=== PATIENT | male | born 1935 | race Caucasian/White ===

== ENCOUNTER 2017-12-07 13:50 | Inpatient (IN) | payer MEDICARE, OTHER ==
[2017-12-07 15:41] LABS: CHLORIDE,CL 104 mmol/L (101-111); SODIUM,NA 138 mmol/L (135-145)
[2017-12-07] MEDS ORDERED: Docusate Sodium 100 MG Cap PO PRN (16:42)
[2017-12-07] MEDS ORDERED: Acetaminophen 325 MG Tab PO PRN (16:42)
[2017-12-07] MEDS ORDERED: Ondansetron 4 MG Tab.DIS PO PRN (16:42)
[2017-12-07] MEDS: Sodium Chloride 0.9% 1,000 ML IV SCH (18:00)
--- NOTE | 2017-12-07 19:09 | EDM.PDOC ---
Scribed by Gracie Dexter 12/07/17 [id number] for Brittani Oleary NP ED HPI GENERAL MEDICAL PROBLEM - General Chief Complaint: Neuro Symptoms/Deficits Stated Complaint: HIGH BLOOD PRESSURE, CONFUSSED Time Seen by Provider: 12/07/17 14:46 Source of Information: Reports: Patient, Family, RN, RN Notes Reviewed History Limitations: Reports: Altered Mental Status - History of Present Illness INITIAL COMMENTS - FREE TEXT/NARRATIVE: Patient presents to ER with . states he is having increased confusion. Patient struggles to find words. states patient does not take his meds as prescribed. States he has been somewhat confused for 1-1/2 years. He is sleeping more and cannot follow command. He is incontinent. HE gets upset, irritable and angry. He was round this A.M. on the floor at 0300. Duration: Getting Worse Location: Reports: Generalized Severity: Severe Improves with: Reports: None Worsens with: Reports: None Associated Symptoms: Reports: No Other Symptoms - Related Data Allergies Allergy/AdvReac Type Severity Reaction Status Date / Time ampicillin Allergy Rash Verified 12/07/17 14:19 levofloxacin [From Levaquin] Allergy Cannot Verified 12/07/17 14:19 Remember sulfamethoxazole Allergy Cannot Verified 12/07/17 14:19 [From Bactrim] Remember trimethoprim [From Bactrim] Allergy Cannot Verified 12/07/17 14:19 Remember hydromorphone [From Dilaudid] AdvReac Bradycardia Verified 12/07/17 14:19 Home Meds: Home Meds Allopurinol [Zyloprim] 150 mg PO DAILY 11/06/14 [History] Metoprolol Succinate [Toprol XL 50mg] 150 mg PO DAILY 11/06/14 [History] Rosuvastatin [Crestor] 5 mg PO .QOD 11/06/14 [History] Sennosides [Senna] 2 cap PO BEDTIME 11/06/14 [History] Aspirin [Halfprin] 81 mg PO DAILY 09/03/16 [History] Tolterodine Tartrate [Tolterodine Tartrate ER] 4 mg PO DAILY 12/07/17 [History] amLODIPine [Norvasc] 5 mg PO DAILY 12/07/17 [History] Past Medical History HEENT History: Reports: Cataract, Hard of Hearing, Impaired Vision Cardiovascular History: Reports: Aneurysm, High Cholesterol, Hypertension, Other (See Below) (circulation issues) Respiratory History: Reports: None Gastrointestinal History: Reports: Chronic Constipation, Diverticulosis, GI Bleed (. Rectal bleeding.), Hemorrhoids, Other (See Below) Other Gastrointestinal History: HX OF SBO Genitourinary History: Reports: Urinary Incontinence Other Genitourinary History: HX OF BLADDER CA Musculoskeletal History: Reports: Gout, Osteoarthritis Other Musculoskeletal History: polymylagia rheumatica Neurological History: Reports: Cerebral Aneurysms, Other (See Below) (aneurysm) Psychiatric History: Reports: Alzheimers Disease Endocrine/Metabolic History: Reports: None Hematologic History: Reports: None Immunologic History: Reports: None Oncologic (Cancer) History: Reports: None Dermatologic History: Reports: None, Other (See Below) Other Dermatologic History: 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 - Infectious Disease History Infectious Disease History: Reports: Chicken Pox, Measles, Mumps Other Infectious Disease History: INTERVIEWING , SHE IS UNAWARE - Past Surgical History Head Surgeries/Procedures: Reports: None HEENT Surgical History: Reports: Cataract Surgery Respiratory Surgical History: Reports: None Endocrine Surgical History: Reports: None Oncologic Surgical History: Reports: None Social & Family History - Family History Family Medical History: Noncontributory - Tobacco Use Smoking Status *Q: Former Smoker Years of Tobacco use: 3 Packs/Tins Daily: 0.5 Used Tobacco, but Quit: Yes Month/Year Tobacco Last Used: september Second Hand Smoke Exposure: No - Caffeine Use Caffeine Use: Reports: Coffee, Soda Other Caffeine Use: AVERAGE OF 2 CUPS DAILY - Alcohol Use Days Per Week of Alcohol Use: 3 Number of Drinks Per Day: 1 Total Drinks Per Week: 3 - Recreational Drug Use Recreational Drug Use: No Drug Use in Last 12 Months: No - Living Situation & Occupation Occupation: Retired ED ROS GENERAL - Review of Systems Review Of Systems: ROS reveals no pertinent complaints other than HPI. ED EXAM, NEURO - Physical Exam Exam: See Below Exam Limited By: No Limitations General Appearance: Other (dissheveled, smells of urine.) Eye Exam: Bilateral Eye: Normal Inspection Ears: Normal External Exam, Normal Canal, Hearing Grossly Normal, Normal TMs Nose: Normal Inspection Throat/Mouth: Normal Inspection, Normal Lips, Normal Teeth, Normal Gums, Normal Oropharynx, Normal Voice, No Airway Compromise Head Exam: Atraumatic, Normocephalic Neck: Normal Inspection, Supple, Non-Tender, Full Range of Motion Respiratory/Chest: Decreased Breath Sounds Cardiovascular: Normal Peripheral Pulses, Regular Rate, Rhythm, No Edema, No Gallop, No JVD, No Murmur, No Rub GI/Abdominal: Normal Bowel Sounds, Soft, Non-Tender, No Organomegaly, No Distention, No Abnormal Bruit, No Mass (Male) Exam: Other (incontinent) Rectal (Males) Exam: Deferred Back Exam: Normal Inspection, Full Range of Motion, NT Extremities: Other (decreased range of motion.) Psychiatric: Other (confused) Skin Exam: Warm, Dry, Intact, Normal Color, No Rash Course - Vital Signs Last Recorded V/S: Last Vital Signs Temp 97.6 F 12/07/17 14:00 Pulse 92 12/07/17 14:39 Resp 18 12/07/17 14:00 BP 150/73 H 12/07/17 14:39 Pulse Ox 97 12/07/17 14:39 - Orders/Labs/Meds Labs: Laboratory Tests 12/07/17 12/07/17 12/07/17 Range/Units 15:13 15:13 16:09 WBC 8.1 (5.0-10.0) 10^3/uL RBC 4.63 (4.6-6.2) 10^6/uL Hgb 14.6 (14.0-18.0) g/dL Hct 43.0 (40.0-54.0) % MCV 92.9 (80-100) fL MCH 31.5 (27.0-34.0) pg MCHC 34.0 (33.0-35.0) g/dL Plt Count 214 (150-450) 10^3/uL Neut % (Auto) 67.7 (42.2-75.2) % Lymph % (Auto) 19.0 L (20.5-50.1) % Dixon % (Auto) 12.7 H (2-8) % Eos % (Auto) 0.4 L (1.0-3.0) % Baso % (Auto) 0.2 (0.0-1.0) % Sodium 138 (135-145) mmol/L Potassium 3.9 (3.6-5.0) mmol/L Chloride 104 (101-111) mmol/L Carbon Dioxide 26.0 (21.0-31.0) mmol/L Anion Gap 11.9 BUN 14 (7-18) mg/dL Creatinine 1.0 (0.6-1.3) mg/dL Est Cr Clr Drug Dosing 56.95 mL/min Estimated GFR (MDRD) > 60 BUN/Creatinine Ratio 14.00 Glucose 95 (74-105) mg/dL Calcium 9.1 (8.4-10.2) mg/dl Total Bilirubin 0.6 (0.2-1.0) mg/dL AST 19 (10-42) IU/L ALT 13 (10-60) IU/L Alkaline Phosphatase 68 (42-121) IU/L Total Protein 7.7 (6.7-8.2) g/dl Albumin 4.1 (3.2-5.5) g/dl Globulin 3.6 Albumin/Globulin Ratio 1.14 Urine Color Yellow (YELLOW) Urine Appearance Clear (CLEAR) Urine pH 5.5 (5.0-9.0) Ur Specific Wilsey >= 1.030 (1.005-1.030) Urine Protein 30 H (NEGATIVE) Urine Glucose (UA) Negative (NEGATIVE) Urine Ketones Negative (NEGATIVE) Urine Occult Blood Negative (NEGATIVE) Urine Nitrite Negative (NEGATIVE) Urine Bilirubin Negative (NEGATIVE) Urine Urobilinogen 0.2 (0.2-1.0) mg/dL Ur Leukocyte Esterase Negative (NEGATIVE) Urine RBC 0-5 /HPF Urine WBC 0-5 (0-5/HPF) /HPF Ur Epithelial Cells Rare /HPF Urine Bacteria Rare (0-FEW/HPF) /HPF - Radiology Interpretation Free Text/Narrative:: CT head: Mild white matter hypoattenuation 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 No intracranial mass effect, hemorrhage or acute large territory infarct. 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 See rad report. Departure - Departure Time of Disposition: 16:41 Disposition: Refer to Observation Condition: Poor Clinical Impression: Muscle weakness, Confusion, Unsteady gait - Discharge Information Forms: ED Department Discharge I have read and agree with the documentation that has been completed regarding this visit. By signing this record, I attest that the documentation was completed in my physical presence and is an accurate record of the encounter.
[2017-12-07] MEDS: Rosuvastatin 10 MG Tab PO SCH (20:37)
--- NOTE | 2017-12-07 20:46 | PCM.HP ---
H&P History of Present Illness - General Date of Service: 12/07/17 Source of Information: Family History Limitations: Reports: Altered Mental Status - History of Present Illness Initial Comments - Free Text/Narative: The patient is an 81 year old mom with medical history of hypertension and dyslipidemia. The patient has cognitive difficulty with some dementia. This has been worsening over the past few months. In the past 3 days it appears to have markedly worsened. Patient is argumentative and sometimes aggressive to the . Early this morning he was found on the floor by his . He was very weak and had trouble getting up and ambulating Duration of Symptoms: Reports: Chronic Location: Reports: Generalized Severity: Moderate Context: Reports: Other Associated Symptoms: Reports: Confusion, Malaise - Related Data Allergies/Adverse Reactions: Allergies Allergy/AdvReac Type Severity Reaction Status Date / Time ampicillin Allergy Rash Verified 12/07/17 14:19 levofloxacin [From Levaquin] Allergy Rash Verified 12/07/17 17:57 sulfamethoxazole Allergy Rash Verified 12/07/17 17:57 [From Bactrim] trimethoprim [From Bactrim] Allergy Rash Verified 12/07/17 17:57 hydromorphone [From Dilaudid] AdvReac Bradycardia Verified 12/07/17 14:19 Home Medications: Home Meds Allopurinol [Zyloprim] 150 mg PO DAILY 11/06/14 [History] Metoprolol Succinate [Toprol XL 50mg] 150 mg PO DAILY 11/06/14 [History] Rosuvastatin [Crestor] 5 mg PO .QOD 11/06/14 [History] Sennosides [Senna] 2 cap PO BEDTIME 11/06/14 [History] Aspirin [Halfprin] 81 mg PO DAILY 09/03/16 [History] Tolterodine Tartrate [Tolterodine Tartrate ER] 4 mg PO DAILY PRN 12/07/17 [ History] amLODIPine [Norvasc] 5 mg PO DAILY 12/07/17 [History] Past Medical History HEENT History: Reports: Cataract, Hard of Hearing, Impaired Vision Cardiovascular History: Reports: Aneurysm, High Cholesterol, Hypertension, Other (See Below) (circulation issues) Respiratory History: Reports: None Gastrointestinal History: Reports: Chronic Constipation, Diverticulosis, GI Bleed (. Rectal bleeding.), Hemorrhoids, Other (See Below) Other Gastrointestinal History: HX OF SBO Genitourinary History: Reports: Urinary Incontinence Other Genitourinary History: HX OF BLADDER CA Musculoskeletal History: Reports: Gout, Osteoarthritis Other Musculoskeletal History: polymylagia rheumatica Neurological History: Reports: Cerebral Aneurysms, Other (See Below) (aneurysm) Psychiatric History: Reports: Alzheimers Disease Endocrine/Metabolic History: Reports: None Hematologic History: Reports: None Immunologic History: Reports: None Oncologic (Cancer) History: Reports: None Dermatologic History: Reports: None, Other (See Below) Other Dermatologic History: 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 - Infectious Disease History Infectious Disease History: Reports: Chicken Pox, Measles, Mumps Other Infectious Disease History: INTERVIEWING , SHE IS UNAWARE - Past Surgical History Head Surgeries/Procedures: Reports: None HEENT Surgical History: Reports: Cataract Surgery Respiratory Surgical History: Reports: None Endocrine Surgical History: Reports: None Oncologic Surgical History: Reports: None Social & Family History - Family History Family Medical History: Noncontributory - Tobacco Use Smoking Status *Q: Former Smoker Years of Tobacco use: 3 Packs/Tins Daily: 0.5 Used Tobacco, but Quit: Yes Month/Year Tobacco Last Used: september Second Hand Smoke Exposure: No - Caffeine Use Caffeine Use: Reports: Coffee, Soda Other Caffeine Use: AVERAGE OF 2 CUPS DAILY - Alcohol Use Days Per Week of Alcohol Use: 3 Number of Drinks Per Day: 1 Total Drinks Per Week: 3 - Recreational Drug Use Recreational Drug Use: No Drug Use in Last 12 Months: No - Living Situation & Occupation Occupation: Retired H&P Review of Systems - Review of Systems: Review Of Systems: See Below General: Reports: Weakness, Fatigue Pulmonary: Reports: No Symptoms Cardiovascular: Reports: No Symptoms Gastrointestinal: Reports: No Symptoms Musculoskeletal: Reports: No Symptoms, Other (Generalized weakness) Psychiatric: Reports: Confusion Exam - Exam Exam: See Below - Vital Signs Vital Signs: Last Vital Signs Temp 36.8 C 12/07/17 16:42 Pulse 69 12/07/17 16:42 Resp 18 12/07/17 16:42 BP 151/66 H 12/07/17 16:42 Pulse Ox 98 12/07/17 16:42 Weight: 88.995 kg - Exam General: Alert, Other Neck: Supple Lungs: Clear to Auscultation Cardiovascular: Regular Rate, Regular Rhythm GI/Abdominal Exam: Normal Bowel Sounds, Soft, Non-Tender (Male) Exam: No Hernia, Normal Inspection, Normal Prostate, Circumcised Back Exam: Normal Inspection, Full Range of Motion, NT Extremities: Normal Inspection, Normal Range of Motion, Non-Tender, No Pedal Edema, Normal Capillary Refill Neuro Extensive - Mental Status: Disorientation to Time Neuro Extensive - Motor, Sensory, Reflexes: Dysarthria Psychiatric: Anxious - Patient Data Result Diagrams: 12/07/17 15:13 12/07/17 15:13 *Q Meaningful Use (ADM) - VTE *Q VTE Criteria *Q: - Stroke *Q Stroke Criteria *Q: - AMI *Q AMI Criteria *Q: Problem List Initiated/Reviewed/Updated: Yes Orders Last 24hrs: Active Orders 24 hr Category Date Time Status Brain w wo Cont [MR] Routine Exams 12/08/17 08:38 Ordered Enoxaparin [Lovenox] Med 12/08/17 09:00 Ordered 40 mg SUBCUT DAILY Medication Orders Acetaminophen (Tylenol) 650 mg PO Q4H PRN PRN Reason: Pain (Mild 1-3)/fever Allopurinol (Zyloprim) 150 mg PO DAILY [facility] Amlodipine Besylate (Norvasc) 5 mg PO DAILY [facility] Docusate Sodium (Colace) 100 mg PO BID PRN PRN Reason: Constipation Enoxaparin Sodium (Lovenox) 40 mg SUBCUT DAILY [facility] Sodium Chloride (Normal Saline) 1,000 mls @ 100 mls/hr IV ASDIRECTED [facility] Last Admin: 12/07/17 18:00 Dose: 100 mls/hr Metoprolol Succinate (Toprol Xl) 150 mg PO DAILY [facility] Non-Formulary Medication (Sennosides [Senna]) 2 cap PO BEDTIME [facility] Ondansetron HCl (Zofran Odt) 4 mg PO Q6H PRN PRN Reason: nausea, able to take PO Rosuvastatin Calcium (Crestor) 5 mg PO Q2D [facility] Last Admin: 12/07/17 20:37 Dose: 5 mg Tolterodine Tartrate (Detrol La 24 Hr) 4 mg PO DAILY [facility] Assessment/Plan Comment:: #. Probable acute on chronic encephalopathy Patient has had some cognitive issues in the past few months. This seemed to have escalated in the past few weeks. I suspect that this is due to progression of underlying dementia. I like to rule out an acute stroke #. Probable fall The patient was found on the floor by his this morning #. Hypertension Blood pressure is intermittently elevated #. Dyslipidemia Patient has been on statin #. Generalized weakness Patient is weak and unable to ambulate. This represents a decline from his normal status. Does appear to have some expressive difficulty. Plan: Admit patient to medical floor Consult physical therapy Consult occupational therapy Consult social worker delinquency prevention Patient is weak and I'm hoping to improve his strength with physical and occupational therapy treatment. Obtain MRI to rule out an acute stroke
[2017-12-08] MEDS: Sodium Chloride 0.9% 1,000 ML IV SCH (03:43)
[2017-12-08] MEDS: Metoprolol Succinate 50 MG Tab.ER PO SCH (08:44)
[2017-12-08] MEDS: Allopurinol 300 MG Tab PO SCH (08:45)
[2017-12-08] MEDS: Tolterodine 2 MG Cap.ER PO SCH (08:46)
[2017-12-08] MEDS: Enoxaparin 40 MG/0.4 ML Syringe SUBCUT SCH (08:47)
[2017-12-08] MEDS ORDERED: amLODIPine 5 MG Tab PO SCH (09:00)
--- NOTE | 2017-12-08 09:58 | PCM.PN ---
- General Info Date of Service: 12/08/17 Subjective Update: The patient is very confused. Not able to provide any significant history He is tremulous and shaking. No documented fever Has been constipated. - Review of Systems General: Reports: Weakness, Malaise Pulmonary: Reports: No Symptoms Cardiovascular: Reports: No Symptoms Gastrointestinal: Reports: Constipation - Patient Data Vitals - Most Recent: Last Vital Signs Temp 36.8 C 12/08/17 07:44 Pulse 64 12/08/17 08:44 Resp 20 12/08/17 07:44 BP 173/68 H 12/08/17 08:46 Pulse Ox 97 12/08/17 07:44 Weight - Most Recent: 88.995 kg I&O - Last 24 Hours: Intake & Output 12/07/17 12/08/17 12/08/17 22:59 06:59 14:59 Intake Total 540 980 125 Output Total 100 200 Balance 440 780 125 Med Orders - Current: Current Medications Acetaminophen (Tylenol) 650 mg PO Q4H PRN PRN Reason: Pain (Mild 1-3)/fever Allopurinol (Zyloprim) 150 mg PO DAILY [facility] Last Admin: 12/08/17 08:45 Dose: 150 mg Amlodipine Besylate (Norvasc) 10 mg PO DAILY [facility] Docusate Sodium (Colace) 100 mg PO BID PRN PRN Reason: Constipation Enoxaparin Sodium (Lovenox) 40 mg SUBCUT DAILY [facility] Last Admin: 12/08/17 08:47 Dose: 40 mg Sodium Chloride (Normal Saline) 1,000 mls @ 100 mls/hr IV ASDIRECTED [facility] Last Admin: 12/08/17 03:43 Dose: 100 mls/hr Metoprolol Succinate (Toprol Xl) 150 mg PO DAILY [facility] Last Admin: 12/08/17 08:44 Dose: 150 mg Non-Formulary Medication (Sennosides [Senna]) 2 cap PO BEDTIME [facility] Ondansetron HCl (Zofran Odt) 4 mg PO Q6H PRN PRN Reason: nausea, able to take PO Rosuvastatin Calcium (Crestor) 5 mg PO Q2D [facility] Last Admin: 12/07/17 20:37 Dose: 5 mg Tolterodine Tartrate (Detrol La 24 Hr) 4 mg PO DAILY [facility] Last Admin: 12/08/17 08:46 Dose: 4 mg Discontinued Medications Amlodipine Besylate (Norvasc) 5 mg PO DAILY [facility] Last Admin: 12/08/17 08:46 Dose: Not Given - Exam General: Other (Weak and tremulous) Neck: Supple Lungs: Clear to Auscultation Cardiovascular: Regular Rate, Regular Rhythm GI/Abdominal Exam: Soft, Non-Tender Neurological: Other (Confused and forgetful) - Problem List Review Problem List Initiated/Reviewed/Updated: Yes - My Orders Last 24 Hours: My Active Orders 12/08/17 08:38 Brain w wo Cont [MR] Routine 12/08/17 09:00 MRA Head Without Contrast [Ang Head wo Cont] [MR] Routine Enoxaparin [Lovenox] 40 mg SUBCUT DAILY amLODIPine [Norvasc] 10 mg PO DAILY - Plan Plan:: #. Probable acute on chronic encephalopathy Patient has had some cognitive issues in the past few months. This seemed to have worsened in the past few weeks. I suspect that this is due to progression of underlying dementia. CT scan of the head did not suggest stroke #. Probable fall The patient was found on the floor by his this morning #. Hypertension Blood pressure is intermittently elevated #. Dyslipidemia Patient has been on statin #. Generalized weakness Patient is weak and unable to ambulate. This represents a decline from his normal status. Does appear to have some expressive difficulty. Plan: I try to obtain MRI of the brain. The patient is tremulous and could not lay still. I do not think he had a stroke. I will go ahead and cancel planned MRI Increase amlodipine to 10 mg daily Consult physical therapy Consult occupational therapy Discontinue intravenous fluids
[2017-12-08] MEDS: amLODIPine 5 MG Tab PO SCH ×2 (10:05→10:48)
[2017-12-08] MEDS ORDERED: Bisacodyl 10 MG Supp RECTAL ONE (10:07)
[2017-12-08] MEDS: Acetaminophen Soln 160 MG/5 ML UD Cup PO PRN ×3 (11:39→22:04)
--- NOTE | 2017-12-08 11:56 | CR ---
CLINICAL HISTORY: 81-year-old male with wheezing and shortness of breath reported March 2013 to have " no new cardiopulmonary abnormality compared to 10 November 2009 films" ("subtle pleural changes sugge sting asbestosis" reported CT scan, November 2009). INTERPRETATION: Upright AP portable chest film today suggests some new widening of the superior media stinum and irregularity of the midline trachea since more optimal inspiratory comparison PA film 25 F ebruary 2009. Technique? Superior mediastinal mass? Normal cardiac silhouette and calcifications arch of the left-sided aorta. No alveolar edema or dependent pleural effusion. No new lung mass, focal lobar pneumonia or atelectasis/collapse. No pneumothorax. CONCLUSION: Possible superior mediastinal mass (see above). Recommend CT scan chest with contrast. Otherwise negative exam.
[2017-12-08] MEDS: Piperacillin/Tazobactam 3.375 GM in Sodium Chloride 0.9% 100 ML IV SCH ×2 (14:17→22:31)
[2017-12-09] MEDS: Tolterodine 2 MG Cap.ER PO SCH (10:54)
[2017-12-09] MEDS: Enoxaparin 40 MG/0.4 ML Syringe SUBCUT SCH (10:54)
[2017-12-09] MEDS: Metoprolol Succinate 50 MG Tab.ER PO SCH (10:54)
[2017-12-09] MEDS: Allopurinol 300 MG Tab PO SCH (10:54)
[2017-12-09] MEDS: amLODIPine 5 MG Tab PO SCH (10:55)
[2017-12-09] MEDS: Piperacillin/Tazobactam 3.375 GM in Sodium Chloride 0.9% 100 ML IV SCH ×3 (10:55→22:33)
--- NOTE | 2017-12-09 11:13 | PCM.PN ---
- General Info Date of Service: 12/09/17 Subjective Update: The patient is less confused today compared to yesterday Has not had fever since last night Actually able to comment acute better today No nausea no vomiting - Review of Systems General: Reports: Weakness Pulmonary: Reports: No Symptoms, Cough Genitourinary: Reports: No Symptoms - Patient Data Vitals - Most Recent: Last Vital Signs Temp 37.2 C 12/08/17 22:12 Pulse 59 L 12/08/17 22:12 Resp 20 12/08/17 22:12 BP 116/50 L 12/08/17 22:12 Pulse Ox 93 L 12/08/17 22:12 Weight - Most Recent: 88.995 kg I&O - Last 24 Hours: Intake & Output 12/08/17 12/09/17 12/09/17 22:59 06:59 14:59 Output Total 100 Balance -100 Lab Results Last 24 Hours: Laboratory Results - last 24 hr 12/08/17 12/08/17 12/08/17 Range/Units 11:26 11:26 14:45 WBC 11.1 H (5.0-10.0) 10^3/uL RBC 4.63 (4.6-6.2) 10^6/uL Hgb 14.6 (14.0-18.0) g/dL Hct 42.8 (40.0-54.0) % MCV 92.4 (80-100) fL MCH 31.5 (27.0-34.0) pg MCHC 34.1 (33.0-35.0) g/dL Plt Count 206 (150-450) 10^3/uL Neut % (Auto) 81.1 H (42.2-75.2) % Lymph % (Auto) 9.7 L (20.5-50.1) % [place] % (Auto) 8.8 H (2-8) % Eos % (Auto) 0.2 L (1.0-3.0) % Baso % (Auto) 0.2 (0.0-1.0) % Lactic Acid 1.1 (0.5-2.2) mmol/L Urine Color Yellow (YELLOW) Urine Appearance Slightly cloudy (CLEAR) Urine pH 7.0 (5.0-9.0) Ur Specific [place] 1.020 (1.005-1.030) Urine Protein 30 H (NEGATIVE) Urine Glucose (UA) Negative (NEGATIVE) Urine Ketones Negative (NEGATIVE) Urine Occult Blood Trace-intact H (NEGATIVE) Urine Nitrite Negative (NEGATIVE) Urine Bilirubin Negative (NEGATIVE) Urine Urobilinogen 0.2 (0.2-1.0) mg/dL Ur Leukocyte Esterase Negative (NEGATIVE) Urine RBC 0-5 /HPF Urine WBC 0-5 (0-5/HPF) /HPF Ur Epithelial Cells Occasional /HPF Amorphous Sediment Moderate (0/HPF) /HPF Urine Bacteria Few (0-FEW/HPF) /HPF Urine Mucus Many H /LPF Charles Results Last 24 Hours: Microbiology 12/08/17 14:45 Urine Culture - Preliminary Urine, Clean Catch Med Orders - Current: Current Medications Acetaminophen (Tylenol Solution) 650 mg PO Q4H PRN PRN Reason: Pain (Mild 1-3)/fever Last Admin: 12/08/17 22:04 Dose: 650 mg Allopurinol (Zyloprim) 150 mg PO DAILY [facility] Last Admin: 12/09/17 10:54 Dose: Not Given Amlodipine Besylate (Norvasc) 5 mg PO DAILY [facility] Last Admin: 12/09/17 10:55 Dose: Not Given Docusate Sodium (Colace) 100 mg PO BID PRN PRN Reason: Constipation Enoxaparin Sodium (Lovenox) 40 mg SUBCUT DAILY [facility] Last Admin: 12/09/17 10:54 Dose: Not Given Piperacillin Sod/Tazobactam (Sod 3.375 gm/ Sodium Chloride) 100 mls @ 200 mls/ hr IV Q8HR [facility] Last Admin: 12/09/17 10:55 Dose: Not Given Metoprolol Succinate (Toprol Xl) 150 mg PO DAILY [facility] Last Admin: 12/09/17 10:54 Dose: Not Given Non-Formulary Medication (Sennosides [Senna]) 2 cap PO BEDTIME [facility] Ondansetron HCl (Zofran Odt) 4 mg PO Q6H PRN PRN Reason: nausea, able to take PO Rosuvastatin Calcium (Crestor) 5 mg PO Q2D [facility] Last Admin: 12/07/17 20:37 Dose: 5 mg Tolterodine Tartrate (Detrol La 24 Hr) 4 mg PO DAILY [facility] Last Admin: 12/09/17 10:54 Dose: Not Given Discontinued Medications Acetaminophen (Tylenol) 650 mg PO Q4H PRN PRN Reason: Pain (Mild 1-3)/fever Amlodipine Besylate (Norvasc) 5 mg PO DAILY [facility] Last Admin: 12/08/17 08:46 Dose: Not Given Amlodipine Besylate (Norvasc) 10 mg PO DAILY [facility] Last Admin: 12/08/17 10:48 Dose: Not Given Bisacodyl (Dulcolax) 10 mg RECTAL ONETIME ONE Stop: 12/08/17 10:08 Last Admin: 12/08/17 12:29 Dose: 10 mg Sodium Chloride (Normal Saline) 1,000 mls @ 100 mls/hr IV ASDIRECTED [facility] Last Admin: 12/08/17 03:43 Dose: 100 mls/hr - Exam General: Alert, Other (Intermittently confused) HEENT: Pupils Equal, Pupils Reactive, EOMI, Mucous Membr. Moist/[place] Lungs: Clear to Auscultation, Normal Respiratory Effort Cardiovascular: Regular Rate, Regular Rhythm Extremities: Normal Inspection, Normal Range of Motion, Non-Tender, No Pedal Edema, Normal Capillary Refill Psy/Mental Status: Other (Intermittently confused) - Problem List Review Problem List Initiated/Reviewed/Updated: Yes - My Orders Last 24 Hours: My Active Orders 12/08/17 11:06 Patient Status [ADT] Routine 12/08/17 11:10 Blood Culture x2 Reflex Set [OM.PC] Stat 12/08/17 11:26 CULTURE BLOOD [BC] Stat 12/08/17 11:28 CULTURE BLOOD [BC] Stat 12/08/17 11:30 Acetaminophen [Tylenol Solution] 650 mg PO Q4H PRN 12/08/17 14:00 Piperacillin/Tazobactam [Zosyn] 3.375 gm Sodium Chloride 0.9% [Normal Saline] 100 ml IV Q8HR 12/08/17 14:45 CULTURE URINE [RM] Routine 12/09/17 09:00 amLODIPine [Norvasc] 5 mg PO DAILY 12/10/17 11:07 CBC W/O DIFF,HEMOGRAM [HEME] Routine CRP [C-REACTIVE PROTEIN] [CHEM] Routine - Plan Plan:: #. Acute febrile illness The patient started having fever with temperature up to 103 Source of the fever is not obvious at this point. No evidence of urinary tract infection. No evidence of chest infection Patient was started on intravenous Zosyn empirically. #. Probable acute on chronic encephalopathy Patient has had some cognitive issues in the past few months. This seemed to have worsened in the past few weeks. I suspect that this is due to progression of underlying dementia. CT scan of the head did not suggest stroke #. Probable fall The patient was found on the floor by his this morning #. Hypertension Blood pressure is intermittently elevated #. Dyslipidemia Patient has been on statin #. Generalized weakness Patient is weak and unable to ambulate. This represents a decline from his normal status. Plan: I tried to obtain MRI of the brain but the patient could not stay still I started the patient on intravenous Zosyn and will continue it for now Blood cultures and urine cultures obtained Discontinue intravenous fluid Continue physical and occupational therapy
[2017-12-09] MEDS: SENNOSIDES PO SCH (13:29)
[2017-12-09] MEDS: Oseltamivir 75 MG Cap PO SCH ×2 (14:22→22:32)
[2017-12-09] MEDS: Acetaminophen Soln 160 MG/5 ML UD Cup PO PRN ×2 (15:47→22:33)
[2017-12-09] MEDS ORDERED: Haloperidol Lactate 5 MG/ML SDV IVPUSH PRN (17:41)
[2017-12-09] MEDS: Haloperidol Lactate 5 MG/ML SDV IM PRN (17:49)
[2017-12-09] MEDS: Rosuvastatin 10 MG Tab PO SCH (22:46)
[2017-12-10] MEDS: Piperacillin/Tazobactam 3.375 GM in Sodium Chloride 0.9% 100 ML IV SCH ×3 (06:08→22:18)
[2017-12-10] MEDS: Acetaminophen Soln 160 MG/5 ML UD Cup PO PRN (08:42)
[2017-12-10] MEDS: Tolterodine 2 MG Cap.ER PO SCH (08:46)
[2017-12-10] MEDS: Oseltamivir 75 MG Cap PO SCH ×2 (08:46→20:28)
[2017-12-10] MEDS: Enoxaparin 40 MG/0.4 ML Syringe SUBCUT SCH (08:46)
[2017-12-10] MEDS: Allopurinol 300 MG Tab PO SCH (08:46)
[2017-12-10] MEDS: Metoprolol Succinate 50 MG Tab.ER PO SCH (08:48)
[2017-12-10] MEDS: amLODIPine 5 MG Tab PO SCH (08:49)
--- NOTE | 2017-12-10 11:07 | PCM.PN ---
- General Info Date of Service: 12/10/17 Admission Dx/Problem (Free Text): Patient was admitted with increasing confusion Initially the reason for that was not obvious. Subsequently he was found to have influenza type B Continues to be intermittently agitated. It tends to be worse in the evenings. - Review of Systems General: Reports: No Symptoms Pulmonary: Reports: Cough Cardiovascular: Reports: No Symptoms Gastrointestinal: Reports: No Symptoms Psychiatric: Reports: No Symptoms - Patient Data Vitals - Most Recent: Last Vital Signs Temp 37.6 C 12/10/17 08:25 Pulse 68 12/10/17 08:48 Resp 20 12/10/17 08:25 BP 155/72 H 12/10/17 08:49 Pulse Ox 97 12/10/17 08:25 Weight - Most Recent: 88.995 kg I&O - Last 24 Hours: Intake & Output 12/09/17 12/10/17 12/10/17 22:59 06:59 14:59 Intake Total 104 278 240 Output Total 175 Balance 104 103 240 Lab Results Last 24 Hours: Laboratory Results - last 24 hr 12/10/17 12/10/17 Range/Units 06:20 06:20 WBC 7.3 (5.0-10.0) 10^3/uL RBC 4.49 L (4.6-6.2) 10^6/uL Hgb 14.2 (14.0-18.0) g/dL Hct 41.5 (40.0-54.0) % MCV 92.4 (80-100) fL MCH 31.6 (27.0-34.0) pg MCHC 34.2 (33.0-35.0) g/dL Plt Count 174 (150-450) 10^3/uL C-Reactive Protein 3.5 H (0.0-1.3) mg/dL Charles Results Last 24 Hours: Microbiology 12/08/17 14:45 Urine Culture - Final Urine, Clean Catch 12/09/17 12:07 Influenza Type A Antigen Screen - Final Nasopharyngeal Swab NEGATIVE INFLUENZA A VIRUS AG Influenza Type B Antigen Screen - Final Positive Influenza B Ag 12/08/17 11:28 Aerobic Blood Culture - Preliminary Blood - Venous - Lab Draw NO GROWTH AFTER 1 DAY Anaerobic Blood Culture - Preliminary NO GROWTH AFTER 1 DAY 12/08/17 11:26 Aerobic Blood Culture - Preliminary Blood - Venous NO GROWTH AFTER 1 DAY Anaerobic Blood Culture - Preliminary NO GROWTH AFTER 1 DAY Med Orders - Current: Current Medications Acetaminophen (Tylenol) 650 mg PO Q6H PRN PRN Reason: pain/fever Allopurinol (Zyloprim) 150 mg PO DAILY [facility] Last Admin: 12/10/17 08:46 Dose: 150 mg Amlodipine Besylate (Norvasc) 5 mg PO DAILY [facility] Last Admin: 12/10/17 08:49 Dose: 5 mg Docusate Sodium (Colace) 100 mg PO BID PRN PRN Reason: Constipation Enoxaparin Sodium (Lovenox) 40 mg SUBCUT DAILY [facility] Last Admin: 12/10/17 08:46 Dose: 40 mg Haloperidol Lactate (Haldol) 5 mg IM Q6H PRN PRN Reason: agitation Last Admin: 12/09/17 17:49 Dose: 5 mg Piperacillin Sod/Tazobactam (Sod 3.375 gm/ Sodium Chloride) 100 mls @ 200 mls/ hr IV Q8HR [facility] Last Admin: 12/10/17 06:08 Dose: 200 mls/hr Metoprolol Succinate (Toprol Xl) 150 mg PO DAILY [facility] Last Admin: 12/10/17 08:48 Dose: 150 mg Ondansetron HCl (Zofran Odt) 4 mg PO Q6H PRN PRN Reason: nausea, able to take PO Oseltamivir Phosphate (Tamiflu) 75 mg PO BID [facility] Stop: 12/18/17 21:01 Last Admin: 12/10/17 08:46 Dose: 75 mg Rosuvastatin Calcium (Crestor) 5 mg PO Q2D [facility] Last Admin: 12/09/17 22:46 Dose: 5 mg Senna/Docusate Sodium (Senna Plus) 2 tab PO BEDTIME [facility] Last Admin: 12/09/17 22:32 Dose: 2 tab Tolterodine Tartrate (Detrol La 24 Hr) 4 mg PO DAILY [facility] Last Admin: 12/10/17 08:46 Dose: 4 mg Discontinued Medications Acetaminophen (Tylenol) 650 mg PO Q4H PRN PRN Reason: Pain (Mild 1-3)/fever Acetaminophen (Tylenol Solution) 650 mg PO Q4H PRN PRN Reason: Pain (Mild 1-3)/fever Last Admin: 12/10/17 08:42 Dose: 650 mg Amlodipine Besylate (Norvasc) 5 mg PO DAILY [facility] Last Admin: 12/08/17 08:46 Dose: Not Given Amlodipine Besylate (Norvasc) 10 mg PO DAILY [facility] Last Admin: 12/08/17 10:48 Dose: Not Given Bisacodyl (Dulcolax) 10 mg RECTAL ONETIME ONE Stop: 12/08/17 10:08 Last Admin: 12/08/17 12:29 Dose: 10 mg Haloperidol Lactate (Haldol) 2 mg IVPUSH Q8H PRN PRN Reason: agitation Sodium Chloride (Normal Saline) 1,000 mls @ 100 mls/hr IV ASDIRECTED [facility] Last Admin: 12/08/17 03:43 Dose: 100 mls/hr Non-Formulary Medication (Sennosides [Senna]) 2 cap PO BEDTIME [facility] Last Admin: 12/09/17 13:29 Dose: Not Given - Exam General: Alert, Other (Intermittently agitated) Neck: Supple Lungs: Clear to Auscultation, Normal Respiratory Effort Cardiovascular: Regular Rate, Regular Rhythm Extremities: Normal Inspection, Normal Range of Motion, Non-Tender, No Pedal Edema, Normal Capillary Refill - Problem List Review Problem List Initiated/Reviewed/Updated: Yes - My Orders Last 24 Hours: My Active Orders 12/09/17 12:07 INFLUENZA A+B AG SCREEN [RM] Routine 12/09/17 13:30 Oseltamivir [Tamiflu] 75 mg PO BID 12/09/17 17:43 Haloperidol Lactate [Haldol] 5 mg IM Q6H PRN 12/09/17 21:00 Docusate Sodium/Sennosides [Senna Plus] 2 tab PO BEDTIME 12/10/17 10:05 Acetaminophen [Tylenol] 650 mg PO Q6H PRN - Plan Plan:: #. Acute febrile illness The patient started having fever with temperature up to 103 This is secondary to influenza type B #. Probable acute on chronic encephalopathy Patient has had some cognitive issues in the past few months. This seemed to have worsened in the past few weeks. I suspect that this is due to progression of underlying dementia. CT scan of the head did not suggest stroke #. Probable fall The patient was found on the floor by his this morning #. Hypertension Blood pressure is intermittently elevated #. Dyslipidemia Patient has been on statin #. Generalized weakness Patient is weak and unable to ambulate. This represents a decline from his normal status. Plan: discontinue IV zosyn Started pt on Tamiflu PT/OT possible D/c in AM Discussed with family
[2017-12-10] MEDS: Acetaminophen 325 MG Tab PO PRN (19:35)
[2017-12-11] MEDS: Piperacillin/Tazobactam 3.375 GM in Sodium Chloride 0.9% 100 ML IV SCH (05:24)
[2017-12-11 09:52] LABS: CHLORIDE,CL 105 mmol/L (101-111); SODIUM,NA 138 mmol/L (135-145)
[2017-12-11] MEDS: Allopurinol 300 MG Tab PO SCH (10:59)
[2017-12-11] MEDS: Oseltamivir 75 MG Cap PO SCH ×2 (10:59→20:26)
[2017-12-11] MEDS: Metoprolol Succinate 50 MG Tab.ER PO SCH (10:59)
[2017-12-11] MEDS: amLODIPine 5 MG Tab PO SCH (11:00)
[2017-12-11] MEDS: Tolterodine 2 MG Cap.ER PO SCH (11:00)
[2017-12-11] MEDS: Enoxaparin 40 MG/0.4 ML Syringe SUBCUT SCH (11:01)
[2017-12-11] MEDS ORDERED: Iopamidol 612 MG/ML 75 ML Bottle IVPUSH ONE (11:07)
[2017-12-11] MEDS: Potassium Chloride 10 MEQ Tab.ER PO SCH ×2 (11:43→18:42)
--- NOTE | 2017-12-11 13:18 | PN ---
DATE: 12/11/2017 SUBJECTIVE: Mr. Raquel Matthews is an 82-year-old male with a medical history significant for underlying dementia, hypertension, hyperlipidemia, and was admitted to the hospital with acute encephalopathy and increased confusional state, and further workup showed evidence of influenza A. For the last 24 hours, the patient remains confused but not as agitated as he was at the time of admission. He denies any chest pain. No shortness of breath. No abdominal pain. No nausea. No vomiting. No diarrhea. He is able to ambulate out of the bed to the chair. REVIEW OF SYSTEMS: Difficult to obtain. PHYSICAL EXAMINATION: Vital Signs: Temperature of 98.1, pulse of 65, blood pressure 162/80, respiratory rate of 20, and saturating at 98% on room air. General Appearance: The patient is well oriented to time, place, and person. Follows commands spontaneously. Cardiovascular System: S1 and S2 heard with normal intensity. No gallops. Respiratory System: Clear to auscultation bilaterally. No wheeze. No crepitations. Abdomen: Soft. Bowel sounds positive. Nontender. No rigidity. Extremities: No edema in the bilateral lower extremities. MEDICATIONS: Reviewed. Continue with: 1. Tylenol 650 every 6 hours as needed for pain. 2. Allopurinol 150 mg daily. 3. Norvasc 5 mg daily. 4. Docusate sodium 100 mg twice a day. 5. Lovenox 40 mg subcutaneous daily. 6. Haldol 5 mg IM every 6 hours as needed. 7. Toprol-XL 150 mg daily. 8. Zofran 4 mg every 6 hours as needed. 9. Tamiflu 75 mg daily. 10.Potassium chloride 20 mEq twice a day. 11.Crestor 5 mg daily. 12.Detrol 4 mg daily. LABORATORY DATA: Labs reviewed. Sodium 138, potassium 3.3, chloride 105, bicarb 24, BUN 16, creatinine 1.1, and glucose 136. ASSESSMENT: 1. Acute encephalopathy, improving. 2. Dementia. 3. Influenza positive. 4. Hypokalemia. 5. Mediastinal mass. 6. Dyslipidemia. 7. Generalized weakness. PLAN: 1. Influenza. The patient was tested positive for influenza. He was started on Tamiflu. We will discontinue the antibiotics for now. Continue with the Tamiflu for now. Keep him under droplet isolation. 2. Mediastinal mass. The patient had a chest x-ray which showed evidence of mediastinal mass, recommending for a CT scan of the chest. The patient had history of bladder cancer in the past. We will obtain CT scan of the chest with contrast. The patient and family members were explained about the CT scan of the chest with contrast, and informed consent was obtained from the daughter. 3. Hypokalemia. We will replace with oral potassium chloride and recheck a basic metabolic panel in the a.m. 4. Dementia. The patient was noted to have underlying dementia. The patient has states of agitation. One might consider adding Zyprexa, but having known that the increased mortality in patient with underlying dementia, we will need to discuss this with family members as family members are strongly willing to have a medication to calm him down at home if needed. 5. Hypertension. The patient's blood pressure seems to be slightly elevated. We will continue with current antihypertensive medication. We will dose adjust the medications as needed. 6. Generalized weakness. The patient will be encouraged to ambulate around. Continue with physical therapy and occupational therapy. 7. DVT prophylaxis. Continue with the Lovenox for DVT prophylaxis. 8. Possible discharge in the a.m. if he remains hemodynamically stable. [facility] /[id number]
[2017-12-11] MEDS: Haloperidol Lactate 5 MG/ML SDV IM PRN ×2 (13:55→20:21)
--- NOTE | 2017-12-11 15:34 | CT ---
CLINICAL HISTORY: 82-year-old 197 pound hypertensive male with "bladder cancer" and some "widening of the superior mediastinum with irregularity of the trachea" reported chest radiograph 08 December 2017 ( compared to 09 November 2009). Rule out superior mediastinal mass lesion. SCAN TECHNIQUE: Volume acquisition of data from the chest (bony thorax, lungs and mediastinum) obtain ed during/after the intravenous infusion 75 cc nonionic Isovue contrast while the patient was lying s upine on the Siemens multislice scanner [place], [place]. All data arc hived in the PACS system for storage, reformatting axial/sagittal/coronal planes and study (lung/medi astinal windows). INTERPRETATION: 1. Markedly ectatic and vascular structures (artery and superior vena cava) with 2.4 cm diameter mass lower pole right lobe of the thyroid gland all contributing to "widened" superior mediastinum. No me diastinal lymphadenopathy or metastatic malignancy. 2. Atheromatous calcifications normal caliber ectatic thoracic aorta. No sign of thoracic aortic aneu rysm or dissection. 3. Midline tracheal airway patent but ectatic and appears slightly narrowed, [id number], where it p asses the thyroid gland. No foreign bodies or signs of tracheal- endobronchial lesion. No hilar lymph adenopathy. 4. Bibasilar platelike atelectasis, pleural reactive scarring and scattered pleural calcifications, l kurtis bases posteriorly. 5. Normal cardiac silhouette. No pericardial effusion, signs of alveolar edema or dependent pleural e ffusion. 6. No sign of primary or metastatic lung disease. 7. Gallbladder, liver, stomach, spleen and pancreas unremarkable. Solitary 2.6 cm diameter cortical c yst, laterally, lower midpole right kidney; similar 2.8 cm diameter benign appearing cyst upper mid p ole contralateral left kidney (tiny 12 mm cyst lower pole). CONCLUSION: Ectatic vascularity and lower pole thyroid nodule right lobe contributing to "widened sup erior mediastinum". Bilateral renal cysts. Bibasilar atelectasis, pleural parenchymal scarring and ca lcification. No sign of metastatic malignancy.
[2017-12-11] MEDS: Rosuvastatin 10 MG Tab PO SCH (20:27)
[2017-12-11] MEDS: Acetaminophen 325 MG Tab PO PRN (22:21)
[2017-12-12] MEDS: Tolterodine 2 MG Cap.ER PO SCH (10:32)
[2017-12-12] MEDS: Potassium Chloride 10 MEQ Tab.ER PO SCH (10:34)
[2017-12-12] MEDS: Metoprolol Succinate 50 MG Tab.ER PO SCH (10:34)
[2017-12-12] MEDS: amLODIPine 5 MG Tab PO SCH (10:35)
[2017-12-12] MEDS: Oseltamivir 75 MG Cap PO SCH (10:35)
[2017-12-12] MEDS: Allopurinol 300 MG Tab PO SCH (10:36)
[2017-12-12] MEDS: Enoxaparin 40 MG/0.4 ML Syringe SUBCUT SCH (10:37)
[2017-12-12 11:00] VITALS: BP 142/70
--- NOTE | 2017-12-12 12:40 | DISCH ---
DATE OF SERVICE: 12/12/2017 DATE OF ADMISSION: 12/07/2017 ADMITTING DIAGNOSES: 1. Acute encephalopathy. 2. History of a fall. DISCHARGE DIAGNOSES: 1. Acute encephalopathy, improved. 2. Underlying dementia. 3. Influenza positive. 4. Hypokalemia. HISTORY OF PRESENT ILLNESS: Mr. Byron García is an 82-year-old male with medical history significant for hypertension and hyperlipidemia, admitted to the hospital with acute encephalopathic state with underlying possible dementia; and further workup showed evidence of influenza A. The patient was started on Tamiflu. He continued to have episodes of confusion on this admission, requiring Haldol treatment. After Haldol, his mentation has much improved. The patient had abnormal chest x-ray. There was some questionable mediastinal mass. The patient had a CT scan of the chest which did not show any acute pathology. There was some vascular ectasia which was resulting in mediastinal expansion, but no metastatic lesion was noted on the CT chest. The patient also had head MRI and a head CT scan which were also within normal limits. No acute lesion noted. The patient responded well to that treatment. He is being discharged home with home health care in stable condition. He will be advised to follow with his primary care physician in the next 1 week of time. PHYSICAL EXAMINATION: On the day of discharge: Vital Signs: Temperature of 98.3, pulse of 73, blood pressure of 142/70, respiratory rate of 18, and saturating at 96%. General Appearance: The patient is awake and alert. Follows commands spontaneously. Cardiovascular System: S1 and S2 heard with normal intensity. No gallops. Respiratory System: Clear to auscultation bilaterally. No wheeze. No crepitations. Abdomen: Soft. Bowel sounds positive. Nontender. No rigidity. Extremities: No edema in the bilateral lower extremities. DISCHARGE MEDICATIONS: Include: 1. Tylenol 650 every 6 hours as needed for pain. 2. Allopurinol 150 mg daily. 3. Aspirin 81 mg daily. 4. Toprol-XL 150 mg daily. 5. Potassium chloride 20 mEq twice a day. 6. Rosuvastatin 5 mg oral daily. 7. Senokot two tablets at bedtime. 8. Norvasc 5 mg daily. 9. Tolterodine 4 mg daily as needed for overactive bladder. CONDITION ON ADMISSION: Poor. CONDITION ON DISCHARGE: Stable. ACTIVITY: As tolerated. DIET: Cardiac healthy diet. FOLLOWUP: Follow up with the primary care physician in the next 1 week of time. TIME SPENT: Spent over 35 minutes of time in evaluating and treating this patient and making discharge plans. [facility] /[id number]
== END 2017-12-12 13:00 | disposition home health service (06) | DRG 193 ==
LOC: DL.ED 13:50 → DL.MS 16:57 → OBSVTOIN 12-08 11:06
PROVIDERS: ADMIT Hospitalist; ATTEND Hospitalist
DX: R41.0 Disorientation, unspecified (principal); J10.1 Influenza due to other identified influenza virus with other respiratory manifestations; G93.40 Encephalopathy, unspecified; F02.81 Dementia in other diseases classified elsewhere, unspecified severity, with behavioral disturbance; G30.9 Alzheimer's disease, unspecified; R41.82 Altered mental status, unspecified; I10 Essential (primary) hypertension; E78.5 Hyperlipidemia, unspecified; E87.6 Hypokalemia; E78.00 Pure hypercholesterolemia, unspecified; K59.09 Other constipation; K57.90 Diverticulosis of intestine, part unspecified, without perforation or abscess without bleeding; R32 Unspecified urinary incontinence; F02.80 Dementia in other diseases classified elsewhere, unspecified severity, without behavioral disturbance, psychotic disturbance, mood disturbance, and anxiety; M10.9 Gout, unspecified; Z91.14 Patient's other noncompliance with medication regimen; M19.90 Unspecified osteoarthritis, unspecified site; M35.3 Polymyalgia rheumatica; I67.1 Cerebral aneurysm, nonruptured; F41.9 Anxiety disorder, unspecified; R47.1 Dysarthria and anarthria; W18.30XA Fall on same level, unspecified, initial encounter; Y92.009 Unspecified place in unspecified non-institutional (private) residence as the place of occurrence of the external cause; H91.90 Unspecified hearing loss, unspecified ear; H54.7 Unspecified visual loss; R53.1 Weakness; R53.81 Other malaise; Z85.51 Personal history of malignant neoplasm of bladder; Z87.891 Personal history of nicotine dependence; Z88.1 Allergy status to other antibiotic agents; Z88.5 Allergy status to narcotic agent; Z88.2 Allergy status to sulfonamides; Z79.82 Long term (current) use of aspirin; Z79.899 Other long term (current) drug therapy
CPT/HCPCS: 36415; 70450; 70544; 71045; 71260; 80048; 80053; 81001; 83605; 84484; 85025; 85027; 86140; 87040; 87086; 87804; 96360; 96361; 96372; 97116-GP; 97162-GP; 97165-GO; 99285; A9270-GY; G0378; J1630; J1650; J2543; J7030; J7050; Q9967

== ENCOUNTER 2018-12-16 05:55 | Day surgery (SDC) | payer MEDICARE, OTHER ==
[~2018-12-16 05:55] MED LIST: Dextrose 5%-0.45% NaCl 1,000 ML IV SCH; Sodium Chloride 0.9% 10 ML Syringe FLUSH PRN
[2018-12-16] MEDS ORDERED: fentaNYL 100 MCG/2 ML SDV IV ONE ×3 (05:56→06:59)
[2018-12-16] MEDS ORDERED: Midazolam 1 MG/ML 2 ML SDV IV ONE ×5 (05:56→07:06)
[2018-12-16] MEDS ORDERED: fentaNYL 100 MCG/2 ML SDV ONE (06:17)
[2018-12-16] MEDS ORDERED: Midazolam 1 MG/ML 2 ML SDV ONE (06:17)
[2018-12-16 10:15] VITALS: BP 162/74
--- NOTE | 2018-12-16 13:22 | OR ---
DATE: 12/16/2018 PROCEDURE PERFORMED: Total colonoscopy. INSTRUMENT USED: CF-HQ190 Olympus video colonoscope. PREMEDICATIONS: Fentanyl 100 mcg intravenous, Versed 2.5 mg intravenous. Nasal O2 cannula. The procedure was done under pulse oximetry, BP recording, and monitor tech. INDICATIONS: The patient with chronic constipation and rectal bleeding. Colonoscopy examination is done for detection of any polypoid lesions and removal, endoscopic hemostasis therapy if needed. DESCRIPTION OF PROCEDURE: Initial rectal exam showed external hemorrhoidal tags. Rigid anoscopy showed small internal hemorrhoids without bleeding from them. The colonoscope was passed with ease up to the ileocecal area, photographs were taken of the normal-appearing cecum identified by double-bulged ileocecal folds. No bleeding was noted from any of the visualized areas at the commencement of the examination. The bowel preparation was found to be adequate, Streetman scale 2. No stricture, no vascular ectasia. No large isolated ulcerations seen. No evidence of diffuse inflammatory bowel disease in the form of friability, contact bleeding, or ulcerations. No polyp or tumor mass identified. Probing the proximal sides of folds and flexures using adequate distention and clearing up the stool material, withdrawal of the scope was made. Cecum to rectum time over 6 minutes. No bleeding was noted from any of the visualized areas at the completion of the examination. IMPRESSION: External and internal hemorrhoids. The patient tolerated the procedure well. [facility] /[id number]
== END 2018-12-16 09:25 | disposition home or self-care (01) ==
LOC: DL.ENDO 05:55
PROVIDERS: ATTEND Internal Medicine Gastroenterology
DX: K59.09 Other constipation (principal); K62.5 Hemorrhage of anus and rectum; K64.4 Residual hemorrhoidal skin tags; K64.8 Other hemorrhoids; I10 Essential (primary) hypertension; H91.90 Unspecified hearing loss, unspecified ear; E66.09 Other obesity due to excess calories; E78.5 Hyperlipidemia, unspecified; E53.8 Deficiency of other specified B group vitamins; Z80.0 Family history of malignant neoplasm of digestive organs; Z88.1 Allergy status to other antibiotic agents
CPT/HCPCS: 45378; J7042; J2250; J3010

== ENCOUNTER 2019-02-13 09:13 | Emergency (ER) | payer OTHER, MEDICARE ==
[2019-02-13 09:17] VITALS: BP 143/46
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
[2019-02-13] MEDS ORDERED: Diphtheria,Pertussis(Acell),Tetanus Vaccine 0.5 ML SDV IM ONE (09:19)
[2019-02-13] MEDS ORDERED: Bacitracin Oint 1 GM U/D Packet TOP ONE (09:19)
[2019-02-13 09:52] LABS: ANION GAP 12.5; CHLORIDE,CL 105 mmol/L (101-111); SODIUM,NA 138 mmol/L (135-145)
[2019-02-13 09:54] LABS: ACETAMINOPHEN < 10 ug/mL
== END 2019-02-13 11:59 ==
LOC: DL.ED 09:13
DX: F03.91 Unspecified dementia, unspecified severity, with behavioral disturbance (principal); E78.00 Pure hypercholesterolemia, unspecified; I10 Essential (primary) hypertension; Z88.2 Allergy status to sulfonamides; Z88.5 Allergy status to narcotic agent; Z23 Encounter for immunization; Z79.899 Other long term (current) drug therapy; Z79.82 Long term (current) use of aspirin; Z88.1 Allergy status to other antibiotic agents
CPT/HCPCS: 36415; 80053; 80305; 81001; 83735; 84443; 85025; 90471; 90715; 99285; G0480